=== PATIENT | female | born 1975 | race Caucasian/White ===

== ENCOUNTER → 2016-08-22 | Outpatient (CLI) | payer OTHER ==
[2016-08-22 09:51] LABS: BUN/CREATININE RATIO 21 (0-10)
== END ==
LOC: LAB 08:24
PROVIDERS: Family Medicine
DX: E78.5 Hyperlipidemia, unspecified (principal)
CPT/HCPCS: 36415; 80053; 80061

== ENCOUNTER → 2016-11-10 | Outpatient (CLI) | payer OTHER ==
[2016-11-10 12:37] LABS: HEMOGLOBIN 12.9 gm/dl (12.3-15.3); RED BLOOD COUNT 4.67 M/UL (4.00-5.10); WHITE BLOOD COUNT 6.7 K/UL (4.5-11.0)
== END ==
LOC: LAB 11:54
PROVIDERS: Obstetrics & Gynecology
DX: Z01.812 Encounter for preprocedural laboratory examination (principal); N84.1 Polyp of cervix uteri; Z13.9 Encounter for screening, unspecified
CPT/HCPCS: 36415; 84702; 85025

== ENCOUNTER → 2020-06-25 | Outpatient (CLI) | payer OTHER ==
[~2020-06-25] MED LIST: ATENOLOL25 MG PO; CETIRIZINE HCL10 MG PO; FLOVENT DISKU100 MCG INH; MONTELUKAST SOD10 MG PO; NORCO 5-325 TA1 EACH PO; OMEPRAZOLE20 MG PO; SPRINTEC 28 DA1 EACH PO; VALACYCLOVIR500 MG PO; ZOFRAN4 MG PO
== END ==
LOC: EMI 16:43
DX: M25.572 Pain in left ankle and joints of left foot (principal); G89.29 Other chronic pain; R93.6 Abnormal findings on diagnostic imaging of limbs
CPT/HCPCS: 73721

== ENCOUNTER → 2020-12-30 | Outpatient (CLI) | payer OTHER ==
[~2020-12-30] MED LIST changes: +IBUPROFEN600 MG PO
== END ==
LOC: MAMO 12-19 14:00
DX: Z12.31 Encounter for screening mammogram for malignant neoplasm of breast (principal)
CPT/HCPCS: 77063; 77067

== ENCOUNTER 2021-03-12 09:08 | Emergency (ER) | payer OTHER ==
[~2021-03-12 09:08] MED LIST changes: -IBUPROFEN600 MG PO
[2021-03-12 10:04] LABS: HEMOGLOBIN 14.1 gm/dl (12.3-15.3); RED BLOOD COUNT 4.58 M/UL (4.00-5.10); WHITE BLOOD COUNT 7.4 K/UL (4.5-11.0)
[2021-03-12 10:29] LABS: BUN/CREATININE RATIO 19 (0-10)
[2021-03-12] MEDS ORDERED: IBUPROFEN600 MG PO (13:23)
== END 2021-03-12 13:55 | disposition home or self-care (01) ==
LOC: ER1 09:08
PROVIDERS: Student in an Organized Health Care Education/Training Program
DX: R07.89 Other chest pain (principal); Z20.822 Contact with and (suspected) exposure to COVID-19; E11.9 Type 2 diabetes mellitus without complications; Z88.1 Allergy status to other antibiotic agents; Z90.710 Acquired absence of both cervix and uterus
CPT/HCPCS: 71045; 80053; 82550; 82553; 83874; 84484; 85025; 85652; 86140; 93005; 96374; 96375; 99285; J1200; J1885; J2765; J7030; U0002

== ENCOUNTER → 2021-04-05 | Outpatient (CLI) | payer OTHER ==
[~2021-04-05] MED LIST changes: +IBUPROFEN600 MG PO
[2021-04-05 09:34] LABS: BUN/CREATININE RATIO 21 (0-10)
== END ==
LOC: LAB 08:09
PROVIDERS: Family Medicine
DX: E78.5 Hyperlipidemia, unspecified (principal); I10 Essential (primary) hypertension; E53.8 Deficiency of other specified B group vitamins; E55.9 Vitamin D deficiency, unspecified
CPT/HCPCS: 80053; 80061; 82607

== ENCOUNTER → 2021-04-25 | Outpatient (CLI) | payer OTHER | LOC: EXRD 10:25 | DX: R39.89 Other symptoms and signs involving the genitourinary system (principal) | CPT/HCPCS: 71046 ==

== ENCOUNTER → 2021-07-09 | Outpatient (CLI) | payer OTHER | LOC: EXRD 11:28 | DX: R10.11 Right upper quadrant pain (principal); R10.12 Left upper quadrant pain | CPT/HCPCS: 71046 ==

== ENCOUNTER → 2021-07-18 | Outpatient (CLI) | payer OTHER | LOC: MRI 07-11 13:00 | DX: R22.41 Localized swelling, mass and lump, right lower limb (principal); M72.2 Plantar fascial fibromatosis | CPT/HCPCS: 36415; 73720; 82565; A9577 ==

== ENCOUNTER → 2022-01-04 | Outpatient (CLI) | payer OTHER ==
[2022-01-04 07:56] LABS: HEMOGLOBIN 12.9 gm/dl (12.3-15.3); RED BLOOD COUNT 4.4 M/UL (4.00-5.10); WHITE BLOOD COUNT 5.6 K/UL (4.5-11.0)
[2022-01-04 08:37] LABS: BUN/CREATININE RATIO 21 (0-10)
== END ==
LOC: LAB 07:18
PROVIDERS: Family Medicine
DX: E53.8 Deficiency of other specified B group vitamins (principal); E78.5 Hyperlipidemia, unspecified; I10 Essential (primary) hypertension; E66.9 Obesity, unspecified
CPT/HCPCS: 80048; 80061; 82607; 84443; 85027

== ENCOUNTER → 2022-01-21 | Outpatient (CLI) | payer OTHER | LOC: MAMO 13:45 | DX: Z12.31 Encounter for screening mammogram for malignant neoplasm of breast (principal) | CPT/HCPCS: 77063; 77067 ==

== ENCOUNTER → 2022-03-13 | Outpatient (CLI) | payer OTHER | LOC: EXRD 09:19 | DX: M54.50 Low back pain, unspecified (principal) | CPT/HCPCS: 72110 ==